=== PATIENT | female | born 1950 | race Caucasian/White ===

== ENCOUNTER 2023-04-14 07:15 | Emergency (ER) | payer MEDICARE, SELFPAY ==
--- NOTE | ~2023-04-14 | XR_ITS ---
EXAMINATION: LEFT WRIST AND LEFT ELBOW CLINICAL INFORMATION: Pain after fall COMPARISON: February 07, 2009 TECHNIQUE: Three-view left elbow and 4 view left wrist FINDINGS: There is no evidence of acute fracture or dislocation of the left elbow. There is some prominence of the anterior fat pad and a small effusion could be present bridging the possibility of an occult fracture. There is some calcific spurring seen about the medial epicondyle consistent with calcific epicondylitis. There is degenerative narrowing of the triscaphe joint with degenerative change of the first carpal metacarpal joint with narrowing of joint space and prominent marginal spurring. No acute fracture is appreciated. There is soft tissue swelling seen overlying the dorsal aspect of the wrist. 1 mm calcification adjacent to the ulnar styloid present and may represent secondary ossification center or sequela of previous trauma. XR/XR wrist LT min 3V IMPRESSION: Question small left elbow effusion without definite fracture identified. Occult fracture could be present. Degenerative change with soft tissue edema about the left wrist without acute fracture appreciated.
--- NOTE | ~2023-04-14 | XR_ITS ---
EXAMINATION: XR FOREARM, LEFT CLINICAL INFORMATION: Left wrist and forearm pain and swelling COMPARISON: April 09, 2009 TECHNIQUE: AP and lateral views of the left forearm were obtained. FINDINGS: There is soft tissue edema seen about the distal third of the forearm. No acute fracture or dislocation is evident. On the lateral view of the forearm no elbow effusion is present as well as thought to possibly be present on the 3 view left elbow study from earlier today. There is neutral angulation of the radiocarpal joint. Degenerative change of the left wrist again seen. XR/XR forearm LT 2V IMPRESSION: Soft tissue edema without evidence of acute fracture or dislocation.
--- NOTE | ~2023-04-14 | XR_ITS ---
EXAMINATION: LEFT WRIST AND LEFT ELBOW CLINICAL INFORMATION: Pain after fall COMPARISON: February 07, 2009 TECHNIQUE: Three-view left elbow and 4 view left wrist FINDINGS: There is no evidence of acute fracture or dislocation of the left elbow. There is some prominence of the anterior fat pad and a small effusion could be present bridging the possibility of an occult fracture. There is some calcific spurring seen about the medial epicondyle consistent with calcific epicondylitis. There is degenerative narrowing of the triscaphe joint with degenerative change of the first carpal metacarpal joint with narrowing of joint space and prominent marginal spurring. No acute fracture is appreciated. There is soft tissue swelling seen overlying the dorsal aspect of the wrist. 1 mm calcification adjacent to the ulnar styloid present and may represent secondary ossification center or sequela of previous trauma. XR/XR elbow LT min 3V IMPRESSION: Question small left elbow effusion without definite fracture identified. Occult fracture could be present. Degenerative change with soft tissue edema about the left wrist without acute fracture appreciated.
[2023-04-14 07:21] VITALS: BP 192/63; PULSE 71; RESP 18; TEMP 36.2; O2SAT 99; BMI 30.1
--- NOTE | 2023-04-14 07:58 | ED.EXTPRO ---
HPI - Extremity Problem General Chief complaint: Extremity Injury, Upper Stated complaint: L arm/wrist inj Time Seen by Provider: 04/14/23 07:47 Source: patient and RN notes reviewed Mode of arrival: ambulatory Limitations: no limitations History of Present Illness HPI Narrative: This is a 72-year-old female, with a past medical history of diabetes, hyperlipidemia, hypertension, and arthritis, who presents emergency department with complaints of left wrist pain status post mechanical fall which occurred yesterday. Patient states that she was walking her dog when she pulled back on the leash, and pulled her body backwards causing her to fall back into her buttocks, and she used her left arm to brace her fall. She immediately felt pain in her left wrist and elbow. Pt states that she took tylenol last night which provided her with some relief. Denies any numbness or tingling in her left arm/wrist. She is right handed. No other complaints or concerns at this time. MD Complaint: extremity pain, extremity swelling, joint swelling and joint pain Onset (ago): day(s) Pain Consistency: constant Location: left and upper extremity Quality: aching Radiation: none Relieving factors: cold therapy, immobilization and medication Exacerbating factors: range of motion Associated symptoms: denies other symptoms Related Data Previous Rx's Medication Instructions Recorded acetaminophen 500 mg capsule 500 mg PO QID PRN pain #30 caps 04/14/23 Allergies Allergy/AdvReac Type Severity Reaction Status Date / Time No Known Allergies Allergy Verified 04/14/23 07:23 [No Known Allergies*] Review of Systems Review of Systems: Constitutional: No Weight loss, No Fever, No Chills, No Night Sweats, No Fatigue, No Malaise ENT/Mouth: No Hearing loss, No Ear Pain, No Nasal Congestion, No Sinus Pain, No Hoarseness, No sore throat, No Rhinorrhea, No Swallowing Difficulty Eyes: No Eye Pain, No Swelling, No Redness, No Foreign Body, No Discharge, No Vision Changes Cardiovascular: No Chest Pain, No SOB, No Dyspnea on Exertion, No Orthopnea, No Edema, No Palpitations Respiratory: No Cough, No Sputum, No Wheezing, No Smoke Exposure, No Dyspnea Gastrointestinal: No Nausea, No Vomiting, No Diarrhea, No Constipation, No Abdominal pain, No Hematochezia, No Melena Genitourinary: No irregular bleeding, No Dysuria, No Urinary Frequency, No Hematuria, No Urinary Incontinence/retention, No Urgency, No Flank Pain, No Urinary Flow Changes, No Hesitancy Musculoskeletal: + joint pain, No Myalgias, +Joint Swelling Skin: No Skin Lesions, No rash Neuro: No Weakness, No Numbness, No Paresthesias, No Loss of Consciousness, No Dizziness, No Headache Psych: No Anxiety/Panic, No Depression, No SI/HI/AH/VH, No Social Issues, Heme/Lymph: No Bruising, No Bleeding,No Lymphadenopathy Endocrine: No Polyuria, No Polydipsia, No Temperature Intolerance Yes all other systems are reviewed and are negative Constitutional: Constitutional: Reports as per [facility] Social History Social History Advance Directives: No Advance Directives Information Provided: No Physical Exam Vital Signs: Vital Signs: Last Vital Signs Temp 98.2 F 04/14/23 10:12 Pulse 66 04/14/23 10:12 Resp 15 04/14/23 10:12 BP 187/92 H 04/14/23 10:12 Pulse Ox 99 04/14/23 10:12 O2 Del Method Room Air 04/14/23 10:12 BMI result Body Mass Index 30.1 Const: General: cooperative, comfortable and no acute distress Orientation/consciousness: patient oriented x3 Limitations: no limitations HEENT: Head: Yes normal to inspection, Yes normocephalic and Yes atraumatic Ears: hearing grossly normal bilaterally General nose exam: Normal external nose present Face and sinus: Yes normal facial exam Mouth: Normal oral and palatal mucosa present, oropharynx normal and moist mucous membranes Throat: Yes posterior oropharynx normal Eyes: General: appearance normal, both eyes and all related structures Eyelids: Yes eyelids normal Conjunctivae: conjunctivae normal Sclerae: sclerae normal Pupils: Equal, round and reactive pupils present EOM: EOMs intact bilaterally Neck: Neck: Yes normal visual inspection, Yes full ROM and Yes no lymphadenopathy Lymphatic: no lymphadenopathy noted Chest: Chest palpation & inspection: normal inspection of the chest Resp: Effort & Inspection: normal respiratory effort and able to speak in complete sentences Auscultation: clear to auscultation bilaterally, no crackles, no rales, no rhonchi and no wheezes Cardio: Rate: regular rate Rhythm: regular rhythm Heart sounds: S1 normal heart sound present and S2 normal heart sound present GI: Inspection: Yes normal to inspection Skin: General skin exam: no rashes or lesions noted Trauma: no lacerations or abrasions Wounds: no wounds Neuro: General: patient oriented x3 and moves all extremities Cranial nerves: Yes Equal, round and reactive pupils present Extrem: Other: Left wrist with tenderness to palpation over the left lateral forearm with edema. No snuff box tenderness. No tenderness through the hand. No obvious tenderness over the radius. Exquisite pain with supination and pronation. Left elbow is nontender full range of motion of the left shoulder. Distal pulses are 2+. General: Yes normal to inspection Right upper extremity: normal to inspection Left upper extremity: normal to inspection Right lower extremity: normal to inspection Left lower extremity: normal to inspection Course Reevaluation(s) Reevaluation #1: Unable to fully visualize the for on x-rays, given that this is the pain is his plan, will order forearm x-rays. Reevaluation #2: Forearm x-rays unremarkable, left elbow x-ray revealing small effusion without any fracture identified, patient has no tenderness over the left elbow. Left wrist with degenerative changes with soft tissue edema from left wrist without any acute fracture seen. Ring on left 4th finger had to be cut off as patient was unable to remove this given swelling. Given no definitive fracture seen on x-rays with no snuffbox tenderness splint is not indicated at this time. Patient would benefit from a wrist splint and sling for comfort. Urged the importance of following up with orthopedics for further management of her symptoms. Time: 11:39 Medical Decision Making Medical Decision Making [facility] Narrative: This is a [id number], with a past medical history of hypertension, hyperlipidemia, arthritis, and diabetes, who presents to the emergency department with complaints of left wrist pain and swelling since last night. She fell backwards while walking her dog and used her left arm to brace her fall. Upon arrival, pt is hypertensive at 192/63, likely due to pain. All other vital signs stable. Left wrist with obvious bony abnormality and swelling and pain with pronation and supination. Radial pulses 2+. Plan: Left wrist and elbow x-ray ordered. Differential Diagnosis Differential Diagnoses: The differential diagnosis associated with the presentation includes Left wrist fracture, sprain, strain, contusion Admission/Observation Consideration of admission/observation: Escalation of care including admission/observation considered Lab Data [facility] Lab Attestation statement: I reviewed the patient's lab results. Radiology Impression Discussion of test interpretation with radiology: I have reviewed the radiologist's reading. Radiologist Impression: EXAMINATION: LEFT WRIST AND LEFT ELBOW CLINICAL INFORMATION: Pain after fall COMPARISON: February 07, 2009 TECHNIQUE: Three-view left elbow and 4 view left wrist FINDINGS: There is no evidence of acute fracture or dislocation of the left elbow. There is some prominence of the anterior fat pad and a small effusion could be present bridging the possibility of an occult fracture. There is some calcific spurring seen about the medial epicondyle consistent with calcific epicondylitis. There is degenerative narrowing of the triscaphe joint with degenerative change of the first carpal metacarpal joint with narrowing of joint space and prominent marginal spurring. No acute fracture is appreciated. There is soft tissue swelling seen overlying the dorsal aspect of the wrist. 1 mm calcification adjacent to the ulnar styloid present and may represent secondary ossification center or sequela of previous trauma. XR/XR wrist LT min 3V IMPRESSION: Question small left elbow effusion without definite fracture identified. Occult fracture could be present. ? Degenerative change with soft tissue edema about the left wrist without acute fracture appreciated. Dictated By: Haile Zhang MD EXAMINATION: LEFT WRIST AND LEFT ELBOW CLINICAL INFORMATION: Pain after fall COMPARISON: February 07, 2009 TECHNIQUE: Three-view left elbow and 4 view left wrist FINDINGS: There is no evidence of acute fracture or dislocation of the left elbow. There is some prominence of the anterior fat pad and a small effusion could be present bridging the possibility of an occult fracture. There is some calcific spurring seen about the medial epicondyle consistent with calcific epicondylitis. There is degenerative narrowing of the triscaphe joint with degenerative change of the first carpal metacarpal joint with narrowing of joint space and prominent marginal spurring. No acute fracture is appreciated. There is soft tissue swelling seen overlying the dorsal aspect of the wrist. 1 mm calcification adjacent to the ulnar styloid present and may represent secondary ossification center or sequela of previous trauma. XR/XR elbow LT min 3V IMPRESSION: Question small left elbow effusion without definite fracture identified. Occult fracture could be present. ? Degenerative change with soft tissue edema about the left wrist without acute fracture appreciated. Dictated By: Haile Zhang MD EXAMINATION: XR FOREARM, LEFT CLINICAL INFORMATION: Left wrist and forearm pain and swelling? COMPARISON: April 09, 2009? TECHNIQUE: AP and lateral views of the left forearm were obtained. FINDINGS: There is soft tissue edema seen about the distal third of the forearm. No acute fracture or dislocation is evident. On the lateral view of the forearm no elbow effusion is present as well as thought to possibly be present on the 3 view left elbow study from earlier today. There is neutral angulation of the radiocarpal joint. Degenerative change of the left wrist again seen. XR/XR forearm LT 2V IMPRESSION: Soft tissue edema without evidence of acute fracture or dislocation. ? Dictated By: Haile Zhang MD External Record Review External record reviewed: Inpatient record, Office record, Outpatient record, Prior outpatient labs, Prior outpatient radiology, Primary care record and Outside ED record Discharge Plan Discharge Clinical Impression: Acute wrist pain Patient Disposition: Home, Self-Care Instructions: Wrist Injury (ED) Additional Instructions: Please follow up with orthopedics, call saturday to follow up Keep your left wrist in a splint and sling for comfort. Take prescribed Tylenol as directed as needed for symptoms. Rest, ice, elevation can help with your symptoms. If any new or worsening symptoms occur, please return for re-evaluation. Prescriptions: New acetaminophen 500 mg capsule 500 mg PO QID PRN (Reason: pain) Qty: 30 0RF Referrals: [facility] [place] [facility] [Provider Group] Discharge Date/Time: 04/14/23 12:01
[2023-04-14 10:12] VITALS: BP 187/92; PULSE 66; RESP 15; TEMP 36.8; O2SAT 99
== END 2023-04-14 12:01 | disposition home or self-care (01) ==
PROVIDERS: Emergency Provider Internal Medicine; PCP Internal Medicine
DX: M25.532 Pain in left wrist (principal); M79.602 Pain in left arm; I10 Essential (primary) hypertension; Z79.899 Other long term (current) drug therapy
CPT/HCPCS: 29125; 73080; 73090; 73110; 99283

== ENCOUNTER 2023-06-24 08:30 | Outpatient (RCR) | payer MEDICARE, OTHER, SELFPAY | END 2023-07-05 11:27 | disposition home or self-care (01) | LOC: HO.OT 08:30 | PROVIDERS: PCP Internal Medicine; Visit Provider Physician Assistant | DX: S63.502A Unspecified sprain of left wrist, initial encounter (principal) | CPT/HCPCS: 97110; 97165 ==

== ENCOUNTER 2024-07-11 09:14 | Outpatient (AMB) | payer MEDICARE, OTHER, SELFPAY ==
--- NOTE | 2024-07-11 10:11 | AM.OFFWIN_ITS ---
Intake Vital Signs 07/11/24 10:19 Height 5 ft 3 in Weight 171 lb 6 oz BMI 30.4 BP 138/80 Blood Pressure Location Lt brachial Position Sitting Pulse 93 Pulse Source Pulse Oximeter Pulse Oximetry (%) 96 Oxygen Delivery Method Room Air Intake Visit Reasons: [employer] painful rt eye,headache Intake Note: Patient is here with pain in her right eye for four days, increasingly getting worse each day. Patient Tobacco Use Status: Never used Tobacco Allergies No Known Allergies [No Known Allergies*] Allergy (Verified 07/11/24 10:22) HPI H[employer] painful rt eye,headache HPI Details Patient with several days of worsening right eye pain and now has broken out with a rash on the right side of the bridge of her nose which is arabella, crusted but weeping slightly. No fevers or chills. She notes that the pain at sometimes has a zinger quality to it. 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 Denies fevers or chills. PFSH Social History Patient Tobacco Use Status: Never used Tobacco Review of Systems Const Details: See HPI Physical Exam Vital Signs: Last Vital Signs Pulse 93 07/11/24 10:19 BP 138/80 07/11/24 10:19 Pulse Ox 96 07/11/24 10:19 Oxygen Delivery Method Room Air 07/11/24 10:19 BMI result Body Mass Index 30.4 Const General: no acute distress and well developed Nutritional Appearance: well nourished Orientation/consciousness: patient oriented x3 HEENT Head: Yes normocephalic and Yes atraumatic Eyes Other: Pupils equal round and reactive.EOMI. Scleral Erythema of right eye. No obvious bacterial infection of right eye or lids. No obvious scarring of cornea. Arabella colored vesicular rash at right aspect of the bridge of her nose with mild weeping and erythema. General: appearance normal, both eyes and all related structures Pupils: Equal, round and reactive pupils present EOM: EOMs intact bilaterally Resp Effort & Inspection: normal respiratory effort Auscultation: clear to auscultation bilaterally Cardio Rate: regular rate Rhythm: regular rhythm Heart sounds: S1 normal heart sound present, S2 normal heart sound present, no gallops, no murmurs and no rubs Neuro General: patient oriented x3 and gait normal Cranial nerves: Yes Equal, round and reactive pupils present Psych Affect: normal affect Assessment & Plan Assessment & Plan (1) Ocular herpes zoster: Code(s): B02.30 - Zoster ocular disease, unspecified Plan: Patient presents with right eye globe pain and now rash at the right side of the bridge of her nose and discomfort at the side of her head in dermatome distribution. She does have a history of glaucoma in her left eye and recent pressures in her right eye were normal. 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 Migraine headache is possible but again, rash seems to be part of this problem and would not be consistent with migraines Advised patient go to the emergency department for further evaluation. Sent her a script for valacyclovir and also cephalexin as she seems have mild infection at rash on bridge of nose. Also gave her a gabapentin for pain. 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 Ultimately however, I advised patient to go to the ED and patient agrees to go today. Orders: Referrals Ophthalmology Referral B02.30 - Zoster ocular disease, unspecified Medications: New gabapentin 300 mg PO BEDTIME 14 days 14 caps 0RF cephalexin 500 mg PO Q12H 10 days 20 caps 0RF valacyclovir 500 mg PO Q12H 14 days 28 tabs 0RF Coding Level of Care Code Est Pt Level 3 (63341) Diagnoses Ocular herpes zoster B02.30
[2024-07-11 10:19] VITALS: BP 138/80; PULSE 93; O2SAT 96; BMI 30.4
== END 2024-07-11 11:06 | disposition home or self-care (01) ==
PROVIDERS: PCP Internal Medicine; Visit Provider Family Medicine
DX: B02.30 Zoster ocular disease, unspecified (principal)
CPT/HCPCS: 99213

== ENCOUNTER 2024-09-29 13:45 | Emergency (ER) | payer MEDICARE, OTHER, SELFPAY ==
--- NOTE | ~2024-09-29 | CT_ITS ---
EXAMINATION: CT HEAD WITHOUT CONTRAST CT CERVICAL SPINE WITHOUT CONTRAST CLINICAL INFORMATION: Fall. Head strike. COMPARISON: None available. TECHNIQUE: Contiguous axial imaging was performed from the skull base to vertex without intravenous administration of contrast. Contiguous axial imaging was performed from the upper chest through the skull base without intravenous administration of contrast. Coronal and sagittal reformats were obtained at the acquisition workstation. This CT examination was performed using dose optimization techniques as appropriate, variously including the following: *Automated exposure control. *Adjustment of mA and/or kV according to patient size (this includes techniques or standardized protocols for targeted exams where dose is matched to indication/reason for exam; i.e. extremities or head). *Use of iterative reconstruction technique. DLP: 898 mGy-cm FINDINGS: Head: There is no evidence of acute intracranial hemorrhage or edematous territorial infarction. Mejia-white matter differentiation is preserved. Scattered and partially confluent hypoattenuation in the periventricular and deep white matter are consistent with moderate microangiopathy. Proportional prominence of the ventricles and sulcal spaces without evidence of obstructive hydrocephalus. No abnormal mass effect or midline shift. No extra-axial fluid collections. Small subgaleal hematoma along the left parietal bone, measuring up to 0.4 cm in depth. No associated acute osseous abnormalities. The mastoid air cells and visualized paranasal sinuses are clear. Cervical Spine: The atlantooccipital and atlantoaxial articulations remain well aligned. Moderate degenerative arthropathy of the atlantodental articulation. Mild right convex curvature of the cervical spine. As Straightening of the normal cervical lordosis. Moderate degenerative anterolistheses of C3 on C4 and stepwise from C6-T2. Otherwise, there is anatomic alignment of the vertebral bodies and posterior elements. No evidence of acute fracture or subluxation. The vertebral body heights and disc spaces are maintained. Advanced degenerative disc disease from C3-C6. Moderate degenerative disc disease at all additional levels. Facet and uncovertebral joint arthropathy leads to osseous encroachment on the neural foramina from C2-C6. There is no prevertebral soft tissue swelling. The thyroid gland and remaining cervical soft tissues are within normal limits. The lung apices demonstrate no abnormalities. CT/CT cervical spine wo IV con IMPRESSION: 1. No evidence of acute intracranial hemorrhage or edematous territorial infarction. Moderate underlying microangiopathy and generalized cerebral volume loss. 2. No evidence of acute fracture or traumatic subluxation of the cervical spine. Moderate multilevel degenerative spondyloarthropathy of the cervical spine. 3. Small left parietal scalp hematoma. No associated osseous abnormalities. Electronically signed by: Rolando Garcia DO 09/29/2024 05:29 PM WILY NUNEZ
[2024-09-29 14:41] VITALS: BP 168/69; PULSE 69; RESP 18; TEMP 36.8; O2SAT 99; BMI 31.1
--- NOTE | 2024-09-29 14:41 | ED.HEATRA ---
HPI - Head Injury General Chief complaint: Fall Stated complaint: Fall today - head injury Time Seen by Provider: 09/29/24 17:48 Source: patient Mode of arrival: ambulatory Limitations: no limitations History of Present Illness ED Provider: Eren Tavares PA-C HPI Narrative: 74 yo female with history of DM2 who presents to the ER for evaluation of a fall with head strike today. She tripped over a string of [employer] lights and fell backward, hitting her head on a wood burning stove. No LOC. not on anticoagluation. She denies any chest pain, abdominal pain, nausea, vomiting, confusion, lethargy, vision changes. She has an area of swelling and tenderness on the left posterior side of her head without laceration or bleeding. it is very tender to touch. MD Complaint: head injury Onset (ago): hour(s) Mechanism of Injury: fall Place: home Loss of Consciousness: no Location of injury: parietal Severity: moderate Severity scale (1-10): 6 Quality: aching Radiation: none Other Injuries: none Associated symptoms: denies other symptoms Related Data Home Medications ?Medication ?Instructions ?Recorded ?Confirmed Bacillus coagulans-Bacillus tab PO 07/11/24 subtilis 1 billion cell chewable tablet (up4 Probiotics-Mind and Body) blood sugar diagnostic (OneTouch #10 ea 07/11/24 Verio test strips) calcium 200 mg-D3 6.25 cap PO 07/11/24 mcg-magnesium 50 os--vtq-epa-fish capsule calcium 250 mg tab PO 07/11/24 (citrate)-ergocalciferol (D2) 2.5 mcg (100 unit) tablet (Christofer-Citrate) cholecalciferol (vitamin D3) 25 25 mcg PO DAILY 07/11/24 mcg (1,000 unit) capsule coQ10 (ubiquinol) 100 mg capsule 100 mg PO BID 07/11/24 (Qunol Matt CoQ10) ferrous gluconate 325 mg (37 mg 324 mg PO DAILY 07/11/24 iron) tablet glipizide 5 mg tablet 5 mg PO BID 07/11/24 irbesartan 150 mg tablet 150 mg PO DAILY 07/11/24 latanoprost 0.005 % eye drops drp ophthalmic (eye) 07/11/24 metformin 1,000 mg tablet 1,000 mg PO BID 07/11/24 multivitamin,rk-iemf-vhuykiwn tab PO 07/11/24 Previous Rx's ?Medication ?Instructions ?Recorded acetaminophen 500 mg capsule 500 mg PO QID PRN pain #30 caps 04/14/23 cephalexin 500 mg capsule 500 mg PO Q12H 10 days #20 caps 07/11/24 gabapentin 300 mg capsule 300 mg PO BEDTIME 14 days #14 caps 07/11/24 valacyclovir 500 mg tablet 500 mg PO Q12H 14 days #28 tabs 07/11/24 Allergies Allergy/AdvReac Type Severity Reaction Status Date / Time No Known Allergies Allergy Verified 09/29/24 14:45 [No Known Allergies*] Review of Systems Review of Systems: Yes all other systems are reviewed and are negative [facility] Social History Social History Patient Tobacco Use Status: Never used Tobacco Physical Exam Vital Signs: Vital Signs: Last Vital Signs Temp 97.8 F 09/29/24 17:44 Pulse 79 09/29/24 17:44 Resp 18 09/29/24 17:44 BP 193/77 H 09/29/24 17:44 Pulse Ox 97 09/29/24 17:44 O2 Del Method Room Air 09/29/24 17:44 BMI result Body Mass Index 31.1 Appearance: Alert. Oriented X3. No acute distress. Head: normocephalic, left parietal area with a moderate area of swelling, tenderness, no laceration or wound. Eyes: Pupils equal, round and reactive to light. ENT: Pharynx normal. No tonsillar swelling or exudate. Neck: Normal inspection. Neck supple. No midline tenderness. normal ROM CVS: Normal heart rate and rhythm. Pulses normal. Respiratory: No respiratory distress. Breath sounds normal. Abdomen: Soft and nontender. +BS x4 Skin: Skin warm and dry. Normal skin color. Normal skin turgor. No rashes. Extremities: No lower extremity edema. No joint swelling. Neuro/psych: Oriented X 3. No motor deficit. No sensory deficit. CN II-XII intact. Normal speech and cognition. Steady gait Medical Decision Making Medical Decision Making MDM Narrative: 74 yo female presenting for evaluation after she fell and hit her head today while decorating her house for [place] and tripping over string lights. No LOC. +hematoma in the left parietal area. Neurologically intact. c/o headache. no neck pain CT scans head and cervical spine today were reassuring. no ICH/SAH. she has a scalp hematoma. re-evaluated and pain and swelling are improved. BP elevated. asymptomatic. she has been compliant with her valsartan she would like to be discharged. she has a BP cuff at home and will monitor her BP at home. she will follow up closely with her PCP. she was given strict return precautions. comfortable with dischage home Differential Diagnosis Differential Diagnoses: The differential diagnosis associated with the presentation includes ICH/SAH, contusion, hematoma, scalp fracture Admission/Observation Consideration of admission/observation: Escalation of care including admission/observation considered elderly female with head trauma, considered obs/admit Independent Interpretation I performed an independent interpretation of an: CT Scan Interpretation: CT without acute bleed or edema, agree w/ radiology read Radiology Impression Discussion of test interpretation with radiology: I have reviewed the radiologist's reading. External Record Review External record reviewed: Prior outpatient labs Prescription Management I considered prescription management with: Pain Medication and Other (antihypertensive) Chronic Conditions Patient?s care impacted by: Hypertension Critical Care Time Critical Care Time Critical Care Time: No Discharge Plan Discharge Clinical Impression: Hematoma of left parietal scalp, Hypertension Patient Disposition: Home, Self-Care Instructions: Scalp Contusion in Adults (ED) Additional Instructions: your CT scans today were reassuring use ice to the area of swelling several times per day take tylenol 975 mg every 6-8 hours follow up with your doctor If you develop new or worsening symptoms call 911 or come back to the ER for further evaluation. CT/CT cervical spine wo IV con IMPRESSION: 1. No evidence of acute intracranial hemorrhage or edematous territorial infarction. Moderate underlying microangiopathy and generalized cerebral volume loss. 2. No evidence of acute fracture or traumatic subluxation of the cervical spine. Moderate multilevel degenerative spondyloarthropathy of the cervical spine. 3. Small left parietal scalp hematoma. No associated osseous abnormalities. Prescriptions: No Action acetaminophen 500 mg capsule 500 mg PO QID PRN (Reason: pain) Qty: 30 0RF latanoprost 0.005 % drops ophthalmic (eye) glipizide 5 mg tablet 5 mg PO BID (DME) OneTouch Verio test strips Strip See Rx Instructions .ROUTE DAILY Qty: 10 Rx Instructions: As directed metformin 1,000 mg tablet 1,000 mg PO BID irbesartan 150 mg tablet 150 mg PO DAILY cholecalciferol (vitamin D3) 25 mcg (1,000 unit) capsule 25 mcg PO DAILY Christofer-Citrate 250 mg-2.5 mcg (100 unit) tablet PO multivitamin,ax-viki-udismhsy Tablet PO calc-D3-mag rf-f2-usk-epa-fish 200 mg-6.25 mcg -50 mg capsule PO ferrous gluconate 325 mg (37 mg iron) tablet 324 mg PO DAILY coQ10 (ubiquinol) [Qunol Matt CoQ10] 100 mg capsule 100 mg PO BID up4 Probiotics-Mind and Body 1 billion cell tablet,chewable PO valacyclovir 500 mg tablet 500 mg PO Q12H 14 Days Qty: 28 0RF gabapentin 300 mg capsule 300 mg PO BEDTIME 14 Days Qty: 14 0RF cephalexin 500 mg capsule 500 mg PO Q12H 10 Days Qty: 20 0RF Referrals: Tru Santana MD [Primary Care Provider] - Interventions: ED Discharge Assessment Last Done: 09/29/24 17:44 Print Language: Guinean
[2024-09-29 17:42] VITALS: BP 202/89; PULSE 79; RESP 18; TEMP 36.6; O2SAT 97
[2024-09-29 17:44] VITALS: BP 193/77; PULSE 79; RESP 18; TEMP 36.6; O2SAT 97
== END 2024-09-29 17:59 | disposition home or self-care (01) ==
PROVIDERS: Emergency Provider Emergency Medicine Emergency Medical Services; PCP Internal Medicine
DX: S00.03XA Contusion of scalp, initial encounter (principal); W01.0XXA Fall on same level from slipping, tripping and stumbling without subsequent striking against object, initial encounter; I10 Essential (primary) hypertension; Y93.89 Activity, other specified; Y92.019 Unspecified place in single-family (private) house as the place of occurrence of the external cause; Y99.9 Unspecified external cause status
CPT/HCPCS: 70450; 72125; 99282; 99284

== ENCOUNTER 2024-10-07 09:35 | Outpatient (REF) | payer MEDICARE, OTHER, SELFPAY | END 2024-10-07 09:36 | disposition home or self-care (01) | LOC: HO.HMGCX 09:35 | PROVIDERS: PCP Internal Medicine; Visit Provider Internal Medicine | DX: R05.9 Cough, unspecified (principal) | CPT/HCPCS: 71046 ==